=== PATIENT | female | born 1940 | race Caucasian/White ===

== ENCOUNTER → 2016-10-17 | Outpatient (CLI) | payer MEDICARE, BC ==
[2016-10-17 09:34] LABS: ALT 32 U/L (9-52); AST 20 U/L (14-36); Alkaline Phosphatase 67 U/L (38-126); Anion Gap 13 mmol/L; Blood Urea Nitrogen 27 mg/dL (7-17); Calcium 9.7 mg/dL (8.4-10.2); Carbon Dioxide 23 mmol/L (22-30); Chloride 103 mmol/L (98-107); Cholesterol 158 mg/dL (<200); Glucose 96 mg/dL (74-99); HDL Cholesterol 64 mg/dL (40-60); Non-African American GFR(MDRD) >60 (>60 ml/min/1.73 sqM); Potassium 4.3 mmol/L (3.5-5.1); Sodium 139 mmol/L (137-145); Total Bilirubin 0.5 mg/dL (0.2-1.3); Total Protein 7.2 g/dL (6.3-8.2); Triglycerides 118 mg/dL (<150)
[2016-10-17 09:37] LABS: CH 32.3; CHCM 34.6; HDW 2.59; HGB 12.8 gm/dL (11.4-16.0); MCH 31.6 pg (25.0-35.0); MCHC 33.7 g/dL (31.0-37.0); MCV 93.7 fL (80.0-100.0); Mean Platelet Volume 8.3; RBC 4.06 m/uL (3.80-5.40); RDW 12.6 % (11.5-15.5); WBC 6.8 k/uL (3.8-10.6)
[2016-10-17 13:52] LABS: Hemoglobin A1C 5.6 % (4.2-6.1)
== END | disposition home or self-care (01) ==
LOC: LABWHC1 08:29
PROVIDERS: ATTEND Internal Medicine
DX: E87.8 Other disorders of electrolyte and fluid balance, not elsewhere classified (principal); E78.4 Other hyperlipidemia; R53.83 Other fatigue
CPT/HCPCS: 36415; 80053; 80061; 83036; 84443; 85027

== ENCOUNTER 2016-12-01 21:00 | Emergency (ER) | payer MEDICARE, BC ==
[2016-12-01 21:15] VITALS: RESP 18
--- NOTE | 2016-12-01 21:44 | ED ---
General Adult HPI - General Chief complaint: Upper Respiratory Infection Stated complaint: Cough Time Seen by Provider: 12/01/16 21:32 Source: patient, RN notes reviewed Mode of arrival: ambulatory Limitations: no limitations - History of Present Illness Initial comments: This is a 76-year-old female who presents with a cough 2 weeks that is dry. Patient states she feels like she has to cough up phlegm but she can't. Patient states the cough is worse at night. Patient denies any swelling to bilateral lower extremities. Patient also admits to bilateral ear fullness and congestion. Patient states she's been on amoxicillin for this 2 days but has not noticed any improvement. Patient denies any fever/chills or difficulty breathing. Patient states her throat feels dry but denies that it is sore. Patient denies any abdominal pain, nausea/vomiting/diarrhea.Patient denies any recent chest pain, back pain, numbness, tingling, hematuria, headache, or visual changes, or any other complaints. - Related Data Home Medications Medication Instructions Recorded Confirmed Hydrochlorothiazide 25 mg PO DAILY 10/16/14 12/01/16 Potassium Chloride ER [K-Dur 10] 10 meq PO DAILY 10/16/14 12/01/16 metFORMIN HCL 500 mg PO W/SUPPER 10/16/14 12/01/16 Aspirin 81 mg PO HS 03/26/15 12/01/16 Isosorbide Mononitrate ER [Imdur] 30 mg PO DAILY 08/13/15 12/01/16 Levothyroxine Sodium [Synthroid] 50 mcg PO DAILY 08/13/15 12/01/16 Nitroglycerin Sl Tabs [Nitrostat] 0.4 mg SUBLINGUAL Q5M PRN 08/13/15 12/01/16 Previous Rx's Medication Instructions Recorded Lisinopril [Zestril] 5 mg PO DAILY tab 08/15/15 Azithromycin [Zithromax Z-pack] 250 mg PO DIRECTED #6 tab 12/01/16 Allergies Allergy/AdvReac Type Severity Reaction Status Date / Time Sulfa (Sulfonamide Allergy Itching Verified 12/01/16 21:15 Antibiotics) Review of Systems ROS Statement: Those systems with pertinent positive or pertinent negative responses have been documented in the HPI. ROS Other: All systems not noted in ROS Statement are negative. Past Medical History Past Medical History: Diabetes Mellitus, Hypertension History of Any Multi-Drug Resistant Organisms: None Reported Past Surgical History: Cholecystectomy, Hysterectomy, Orthopedic Surgery Additional Past Surgical History / Comment(s): hip/achilles tendon/colonoscopy/ shoulder Past Anesthesia/Blood Transfusion Reactions: No Reported Reaction Past Psychological History: No Psychological Hx Reported Smoking Status: Never smoker Past Alcohol Use History: None Reported Past Drug Use History: None Reported - Past Family History Mother Family Medical History: Diabetes Mellitus Additional Family Medical History / Comment(s): murmur stomach cancer Father Family Medical History: CVA/TIA General Exam - General Exam Comments Initial Comments: General: The patient is awake and alert, in no distress, and does not appear acutely ill. Eye: Pupils are equal, round and reactive to light, extra-ocular movements are intact. No nystagmus. There is normal conjunctiva bilaterally. No signs of icterus. Ears: TMs pink and pearly with intact cone of light bilaterally. Normal external ear canals Nose: Nasal turbinates pink and moist Mouth and throat: There are moist mucous membranes and no oral lesions. Neck: The neck is supple, there is no tenderness or JVD. Cardiovascular: There is a regular rate and rhythm. No murmur, rub or gallop is appreciated. Respiratory: Dry cough present on exam. Lungs are clear to auscultation, respirations are non-labored, breath sounds are equal. No wheezes, stridor, rales, or rhonchi. Musculoskeletal: Normal ROM, no tenderness. Strength 5/5. Sensation intact. Radial pulses equal bilaterally 2+. Neurological: A&O x 3. CN II-XII intact, There are no obvious motor or sensory deficits. Coordination appears grossly intact. Speech is normal. Skin: Skin is warm and dry and no rashes or lesions are noted. Psychiatric: Cooperative, appropriate mood & affect, normal judgment. Limitations: no limitations Course Vital Signs 12/01/16 12/01/16 21:12 23:16 Temperature 98.4 F 97.8 F Pulse Rate 81 79 Respiratory 18 18 Rate Blood Pressure 139/65 128/71 O2 Sat by Pulse 98 97 Oximetry Medical Decision Making - Medical Decision Making This is a 76 her old female presents with dry cough 2 weeks along with congestion and bilateral ear fullness. Patient has been on 2 days of amoxicillin. On physical exam patient is afebrile in the EC. Patient is neurologically intact. There is a dry cough present on exam and lungs are clear to auscultation bilaterally. Influenza was checked and came back negative. A chest x-ray was done and reviewed showing: No acute cardiopulmonary process. Report read by Dr. Lyle. I discussed the results with patient. Discussed that patient should stop amoxicillin and she will be given a prescription for azithromycin. Patient tolerated oral fluids in the EC and is having no trouble swallowing. I discussed return parameters.Discussed that patient should follow up with PCP in one to 2 days or return to the EC for any worsening symptoms or for any further concerns. Patient was receptive to this plan and patient will be discharged home. I discussed this case with attending physician Dr. Curtis who agrees the plan as stated above. - Lab Data Lab Results 12/01/16 Range/Units 21:45 Influenza Type A RNA Not Detected (Not Detectd) Influenza Type B (PCR) Not Detected (Not Detectd) Disposition Clinical Impression: Upper respiratory infection Disposition: HOME SELF-CARE Condition: Good Instructions: Upper Respiratory Infection (ED) Additional Instructions: Please stop amoxicillin and take azithromycin. Please finish entire course of antibiotics. Please continue to drink plenty of fluids.Discussed that patient should follow up with PCP in one to 2 days or return to the EC for any worsening symptoms or any further concerns. Patient was receptive to this plan patient was discharged home. Prescriptions: Azithromycin [Zithromax Z-pack] 250 mg PO DIRECTED #6 tab Referrals: Neymar Goff MD [Primary Care Provider] - 1-2 days Time of Disposition: 23:08
--- NOTE | 2016-12-01 22:07 | XR ---
EXAMINATION TYPE: XR chest 2V DATE OF EXAM: 12/01/2016 9:54 PM COMPARISON: Prior chest x-ray 13 August 2015 HISTORY: Cough and congestion TECHNIQUE: Frontal and lateral views of the chest are obtained. FINDINGS: There is no focal air space opacity, pleural effusion, or pneumothorax seen. The cardiac silhouette size is within normal limits. The osseous structures are intact. IMPRESSION: No acute cardiopulmonary process.
[2016-12-01 23:18] VITALS: BP 128/71; PULSE 79; TEMP 97.8
== END 2016-12-01 23:17 | disposition home or self-care (01) ==
LOC: EC 21:00
DX: J06.9 Acute upper respiratory infection, unspecified (principal); E11.9 Type 2 diabetes mellitus without complications; I10 Essential (primary) hypertension; Z79.84 Long term (current) use of oral hypoglycemic drugs; Z79.82 Long term (current) use of aspirin; Z79.899 Other long term (current) drug therapy; Z88.2 Allergy status to sulfonamides
CPT/HCPCS: 71020; 87502; 99283

== ENCOUNTER → 2017-04-16 | Outpatient (CLI) | payer MEDICARE, BC ==
[2017-04-16 09:55] LABS: Anion Gap 11 mmol/L; Blood Urea Nitrogen 20 mg/dL (7-17); Calcium 9.1 mg/dL (8.4-10.2); Carbon Dioxide 22 mmol/L (22-30); Chloride 107 mmol/L (98-107); Cholesterol 157 mg/dL (<200); Glucose 83 mg/dL (74-99); HDL Cholesterol 65 mg/dL (40-60); Non-African American GFR(MDRD) 57 (>60 ml/min/1.73 sqM); Potassium 4.1 mmol/L (3.5-5.1); Sodium 140 mmol/L (137-145); Triglycerides 121 mg/dL (<150)
[2017-04-16 11:58] LABS: Hemoglobin A1C 5.9 % (4.2-6.1)
[2017-04-16 16:59] LABS: Urine Creatinine 116.6 mg/dL
== END | disposition home or self-care (01) ==
LOC: LABWHC1 08:43
PROVIDERS: ATTEND Internal Medicine
DX: E11.9 Type 2 diabetes mellitus without complications (principal); E78.5 Hyperlipidemia, unspecified; I10 Essential (primary) hypertension
CPT/HCPCS: 36415; 80048; 80061; 82043; 82570; 83036

== ENCOUNTER → 2018-05-07 | Outpatient (CLI) | payer MEDICARE, BC ==
[2018-05-07 10:11] LABS: Calcium 9.3 mg/dL (8.4-10.2); Potassium 4.1 mmol/L (3.5-5.1)
[2018-05-07 18:21] LABS: Hemoglobin A1C 5.6 % (4.0-6.0)
== END | disposition home or self-care (01) ==
LOC: LABWHC1 08:25
PROVIDERS: ATTEND Internal Medicine
DX: E11.69 Type 2 diabetes mellitus with other specified complication (principal); E87.8 Other disorders of electrolyte and fluid balance, not elsewhere classified; E78.4 Other hyperlipidemia
CPT/HCPCS: 36415; 80048; 80061; 83036

== ENCOUNTER → 2018-08-08 | Outpatient (CLI) | payer MEDICARE, BC ==
--- NOTE | 2018-08-12 09:19 | MM ---
Reason for exam: screening (asymptomatic). Last mammogram was performed 1 year and 1 month ago. History: Patient is postmenopausal and has history of other cancer at age 75. Physical Findings: A clinical breast exam by your physician is recommended on an annual basis and results should be correlated with mammographic findings. MG 3D Screening Mammo W/Cad Bilateral CC and MLO view(s) were taken. Prior study comparison: July 19, 2017, bilateral MG 3d screening mammo w/cad. June 27, 2016, bilateral MG 3d screening mammo w/cad. There are scattered fibroglandular densities. Benign appearing diffuse bilateral calcifications. No suspicious abnormality. No significant changes when compared with prior studies. ASSESSMENT: Benign, BI-RAD 2 RECOMMENDATION: Routine screening mammogram of both breasts in 1 year.
== END | disposition home or self-care (01) ==
LOC: RADMAMWWP 14:11
PROVIDERS: ATTEND Internal Medicine
DX: Z12.31 Encounter for screening mammogram for malignant neoplasm of breast (principal)
CPT/HCPCS: 77063; 77067

== ENCOUNTER → 2019-08-25 | Outpatient (CLI) | payer MEDICARE, BC ==
--- NOTE | 2019-08-27 13:41 | MM ---
Reason for exam: screening (asymptomatic). Last mammogram was performed 1 year and 1 month ago. History: Patient is postmenopausal and has history of other cancer at age 75. Physical Findings: A clinical breast exam by your physician is recommended on an annual basis and results should be correlated with mammographic findings. MG 3D Screening Mammo W/Cad Bilateral CC and MLO view(s) were taken. Prior study comparison: August 08, 2018, bilateral MG 3d screening mammo w/cad. July 19, 2017, bilateral MG 3d screening mammo w/cad. The breast tissue is almost entirely fat. Stable benign calcifications. There is no discrete abnormality. No significant changes when compared with prior studies. ASSESSMENT: Benign, BI-RAD 2 RECOMMENDATION: Routine screening mammogram of both breasts in 1 year.
== END | disposition home or self-care (01) ==
LOC: RADMAMWWP 13:20
PROVIDERS: ATTEND Family Medicine
DX: Z12.31 Encounter for screening mammogram for malignant neoplasm of breast (principal)
CPT/HCPCS: 77063; 77067

== ENCOUNTER → 2019-09-28 | Outpatient (CLI) | payer MEDICARE, BC ==
--- NOTE | 2019-09-28 07:53 | US ---
EXAMINATION TYPE: US carotid duplex BILAT DATE OF EXAM: 09/28/2019 COMPARISON: NONE CLINICAL HISTORY: R10.12,Left upper quadrant pain R42 headaches,. Bruit EXAM MEASUREMENTS: RIGHT: Peak Systolic Velocity (PSV) cm/sec ----- Right CCA: 42.5 ----- Right ICA: 74.7 ----- Right ECA: 38.5 ICA/CCA ratio: 1.8 RIGHT: End Diastole cm/sec ----- Right CCA: 14.0 ----- Right ICA: 24.3 ----- Right ECA: 6.2 LEFT: Peak Systolic Velocity (PSV) cm/sec ----- Left CCA: 42.8 ----- Left ICA: 77.4 ----- Left ECA: 37.5 ICA/CCA ratio: 1.8 LEFT: End Diastole cm/sec ----- Left CCA: 13.1 ----- Left ICA: 26.8 ----- Left ECA: 6.4 VERTEBRALS (direction of flow): Right Vertebral: Antegrade Left Vertebral: Antegrade Rhythm: Normal No elevated velocities, no significant stenosis. IMPRESSION: Mild degree of grayscale atheromatous plaquing with no sonographically evident hemodynam ically significant stenosis within either visualized carotid arterial system. Criteria for Assigning % of Stenosis / Diameter reduction (Estimation based on the indirect measurements of the internal carotid artery velocities (ICA PSV). 1. Normal (no stenosis)=ICA PSV < 125 cm/s: ratio < 2.0: ICA EDV<40 cm/s. 2. Less than 50% stenosis=ICA PSV < 125 cm/s: ratio < 2.0: ICA EDV<40 cm/s. 3. 50 to 69% stenosis=ICA PSV of 125 to 230 cm/s: ration 2.0 ? 4.0: ICA EDV 40-100 cm/s. 4. Greater than 70% stenosis to near occlusion= ICA PSV > 230 cm/s: ratio > 4.0: ICA EDV > 100 cm/s. 5. Near occlusion= ICA PSV velocities may be low or undetectable: variable ratio and ICA EDV. 6. Total occlusion=unable to detect flow.
--- NOTE | 2019-09-28 08:32 | XR ---
EXAMINATION TYPE: XR Hip Complete RT DATE OF EXAM: 09/28/2019 CLINICAL HISTORY: Right hip pain. TECHNIQUE: AP and frogleg views of the right hip are obtained. COMPARISON: None. FINDINGS: There is no acute fracture/dislocation evident in the right hip. Metallic hardware from ri ght hip arthroplasty is identified. Position satisfactory. No suspicious periprosthetic lucency. The overlying soft tissue appears unremarkable. IMPRESSION: As above.
--- NOTE | 2019-09-28 09:34 | CT ---
EXAMINATION TYPE: CT brain wo con DATE OF EXAM: 09/28/2019 HISTORY: Headaches CT DLP: 961.00 mGycm. Automated Exposure Control for Dose Reduction was Utilized. TECHNIQUE: CT scan of the head is performed without contrast. COMPARISON: CT Brain Without March 26, 2015. FINDINGS: There is no acute intracranial hemorrhage or midline shift identified. There is diffuse v entricular and sulcal prominence consistent with diffuse cerebral atrophy. Findings redemonstrated m ost prominent over the bilateral frontal lobes. There is low-attenuation in the periventricular white matter consistent with chronic small vessel ischemic change. The globes are intact and the visualiz ed sinuses are clear. IMPRESSION: No acute intracranial hemorrhage or midline shift. There is mild to moderate diffuse ce rebral atrophy most prominent over bilateral frontal lobes and chronic small vessel ischemic change r edemonstrated. No significant change from prior CT.
--- NOTE | 2019-09-28 09:59 | CT ---
EXAMINATION TYPE: CT abdomen pelvis wo con DATE OF EXAM: 09/28/2019 HISTORY: Left upper quadrant pain CT DLP: 747.70 mGycm. Automated Exposure Control for Dose Reduction was Utilized. TECHNIQUE: CT scan of the abdomen and pelvis is performed with oral but without IV contrast. COMPARISON: CT abdomen and pelvis December 19, 2012 FINDINGS: Within the limitations of a non-contrast study, the following observations are made. LUNG BASES: No significant abnormality is appreciated. LIVER/GB: Gallbladder is not visualized and presumed surgically absent. Findings similar to prior andrade dy. PANCREAS: No significant abnormality is seen. SPLEEN: No significant abnormality is seen. ADRENALS: No significant abnormality is seen. KIDNEYS: Cortical thinning bilaterally. No renal calculi or hydronephrosis. BOWEL: Small hiatal hernia is present. Oral contrast reaches level of mid transverse colon. Moderate prominence of fecal material throughout the remainder of colon through the rectum. No suspicious smal l bowel dilatation. A few distal colonic diverticula in the sigmoid colon near image 74. No convincin g CT evidence for acute diverticulitis. GENITAL ORGANS: Uterus is surgically absent . LYMPH NODES: No greater than 1cm abdominal or pelvic lymph nodes are appreciated. OSSEOUS STRUCTURES: Metallic hardware from a hip arthroplasty redemonstrated causing streak artifact limiting evaluation of pelvic structures. Moderate disc space narrowing at L4-L5 level more prominent from 2013. Moderate multilevel anterior and lateral spurring throughout the thoracolumbar spine. Mod erate to severe narrowing and subchondral cystic change left hip progressed from 2013. OTHER: There is minimal mass effect ventral wall hernia containing fat and tiny mesenteric vessels ax ial image 54 extending inferiorly to the level of umbilicus slightly larger in size versus 2013 study . IMPRESSION: Moderate mid to distal colonic fecal stasis without overall bowel obstruction may be acco unting for patient's symptoms.
== END | disposition home or self-care (01) ==
LOC: RADCTMAIN 06:42
PROVIDERS: ATTEND Family Medicine
DX: G31.89 Other specified degenerative diseases of nervous system (principal); R90.89 Other abnormal findings on diagnostic imaging of central nervous system; I65.23 Occlusion and stenosis of bilateral carotid arteries; K59.8 Other specified functional intestinal disorders; M25.551 Pain in right hip; Z96.641 Presence of right artificial hip joint
CPT/HCPCS: 70450; 73502; 74176; 93880

== ENCOUNTER → 2020-03-05 | Outpatient (CLI) | payer MEDICARE, BC ==
--- NOTE | 2020-03-06 22:21 | XR ---
EXAMINATION TYPE: XR lumbosacral spine 5 views DATE OF EXAM: 03/05/2020 COMPARISON: 09/14/2010 HISTORY: 79-year-old female low back and bilateral hip pain FINDINGS: 5 lumbar type vertebral bodies. As compared to 2009, there is been progression in degenerative disc d isease with moderate multilevel degenerative disc disease now present characterized by vacuum phenome non, endplate spondylosis, variable disc height loss, endplate sclerosis, greatest at L4-L5 and L5-S1 . Hypertrophic facet arthropathy throughout weight trace grade 1 anterolisthesis at L5-S1 appears new. No pars interarticularis defect identified. IMPRESSION: Progressive multilevel spondylotic changes compared to 2009 now moderate degenerative disc disease th roughout, more moderate to advanced in the lower lumbar spine and hypertrophic facet arthropathy with new trace grade 1 anterolisthesis at L5-S1. No vertebral compression collapse.
--- NOTE | 2020-03-06 22:23 | XR ---
EXAMINATION TYPE: AP view pelvis 2 views each hip DATE OF EXAM: 03/05/2020 COMPARISON: Right hip radiographs 09/28/2019 HISTORY: 79 year-old female bilateral hip pain FINDINGS: SI joints appear symmetric and intact as does the pubic symphysis. Right and larger plasty redemonstrated. Both acetabular cup and femoral stem components of the prosth esis remain seated. Some mild heterotopic ossification along the superior aspect of the hip joint is unchanged from 09/28/2019. Severe superolateral narrowing of left hip cartilage and joint space with subchondral sclerosis and c ystic change. Marginal spurring is present. No acute fracture, subluxation, or dislocation seen. IMPRESSION: 1. Stable right hip total arthroplasty. Mild heterotopic ossification along the superior aspect is un changed. 2. Severe left hip OA with loss of the superolateral weightbearing joint space.
== END | disposition home or self-care (01) ==
LOC: RADXRMAIN 10:11
PROVIDERS: ATTEND Family Medicine
DX: M16.12 Unilateral primary osteoarthritis, left hip (principal); Z96.641 Presence of right artificial hip joint; M25.859 Other specified joint disorders, unspecified hip; M51.36 Other intervertebral disc degeneration, lumbar region; M47.817 Spondylosis without myelopathy or radiculopathy, lumbosacral region
CPT/HCPCS: 72110; 72170; 73521

== ENCOUNTER → 2020-05-24 | Outpatient (CLI) | payer MEDICARE, BC ==
--- NOTE | 2020-05-24 14:08 | XR ---
EXAMINATION TYPE: XR lumbosacral spine min 4V DATE OF EXAM: 05/24/2020 COMPARISON: 03/05/2020 HISTORY: Low back pain TECHNIQUE: Five-view lumbar spine FINDINGS: There 5 lumbar-type vertebral bodies. The pedicles are intact. There is loss of disc height L1-L4 5 and mildly at L5-S1. Spondylosis is present. Minimal grade 1 spondylolisthesis of L5 anterio r on S1 may be present. No spondylolytic defects are evident. IMPRESSION: 1. Degenerative disc changes discussed above. 2. Spondylosis.
== END | disposition home or self-care (01) ==
LOC: RADXRMAIN 12:54
PROVIDERS: ATTEND Physical Medicine & Rehabilitation
DX: M43.17 Spondylolisthesis, lumbosacral region (principal); M47.27 Other spondylosis with radiculopathy, lumbosacral region; M51.17 Intervertebral disc disorders with radiculopathy, lumbosacral region
CPT/HCPCS: 72110

== ENCOUNTER → 2020-09-30 | Outpatient (CLI) | payer MEDICARE, BC ==
--- NOTE | 2020-10-02 10:03 | US ---
EXAMINATION TYPE: US carotid duplex BILAT DATE OF EXAM: 09/30/2020 COMPARISON: US CLINICAL HISTORY: Dizziness R42. EXAM MEASUREMENTS: RIGHT: Peak Systolic Velocity (PSV) cm/sec ----- Right CCA: 68.8 ----- Right ICA: 103 ----- Right ECA: 102 ICA/CCA ratio: 1.5 RIGHT: End Diastole cm/sec ----- Right CCA: 12.4 ----- Right ICA: 31.2 ----- Right ECA: 15.6 LEFT: Peak Systolic Velocity (PSV) cm/sec ----- Left CCA: 68.8 ----- Left ICA: 101 ----- Left ECA: 76.1 ICA/CCA ratio: 1.3 LEFT: End Diastole cm/sec ----- Left CCA: 16.3 ----- Left ICA: 26.5 ----- Left ECA: 11.6 VERTEBRALS (direction of flow): Right Vertebral: Antegrade Left Vertebral: Antegrade Rhythm: Normal Grayscale, color Doppler, spectral Doppler imaging performed of the carotid arteries. Waveform analys is shows no significant stenosis. No elevated velocities. Mild bilateral plaque noted. IMPRESSION: No hemodynamic significant stenosis of the proximal internal carotid arteries bilaterall y by Doppler criteria, an indirect measurement of carotid stenosis Criteria for Assigning % of Stenosis / Diameter reduction (Estimation based on the indirect measurements of the internal carotid artery velocities (ICA PSV). 1. Normal (no stenosis)=ICA PSV < 125 cm/s: ratio < 2.0: ICA EDV<40 cm/s. 2. Less than 50% stenosis=ICA PSV < 125 cm/s: ratio < 2.0: ICA EDV<40 cm/s. 3. 50 to 69% stenosis=ICA PSV of 125 to 230 cm/s: ration 2.0 ? 4.0: ICA EDV 40-100 cm/s. 4. Greater than 70% stenosis to near occlusion= ICA PSV > 230 cm/s: ratio > 4.0: ICA EDV > 100 cm/s. 5. Near occlusion= ICA PSV velocities may be low or undetectable: variable ratio and ICA EDV. 6. Total occlusion=unable to detect flow.
== END | disposition home or self-care (01) ==
LOC: RADUSWWP 16:14
PROVIDERS: ATTEND Family Medicine
DX: R42 Dizziness and giddiness (principal)
CPT/HCPCS: 93880

== ENCOUNTER → 2020-10-10 | Outpatient (CLI) | payer MEDICARE, BC ==
--- NOTE | 2020-10-10 12:11 | US ---
EXAMINATION TYPE: US kidneys/renal and bladder DATE OF EXAM: 10/10/2020 COMPARISON: None CLINICAL HISTORY: 80-year-old female N18.9 CKD unspecified...... Abnormal labs TECHNIQUE: Multiple sonographic images of the kidneys and bladder are obtained. FINDINGS: EXAM MEASUREMENTS: Right Kidney: 8.6 x 3.9 x 4.1 cm Left Kidney: 9.6 x 3.3 x 4.9 cm Right Kidney: appears smaller in size compared to contralateral kidney. No hydronephrosis. Left Kidney: No hydronephrosis. Bladder: Underdistention limited for evaluation. Bilateral Jets not seen IMPRESSION: Smaller size of the kidneys, more so on the right. Findings suggest underlying chronic medical renal disease. No hydronephrosis.
--- NOTE | 2020-10-11 09:58 | MM ---
Reason for exam: screening (asymptomatic). Last mammogram was performed 1 year and 1 month ago. History: Patient is postmenopausal and has history of other cancer at age 75. Physical Findings: A clinical breast exam by your physician is recommended on an annual basis and results should be correlated with mammographic findings. MG 3D Screening Mammo W/Cad Bilateral CC and MLO view(s) were taken. Prior study comparison: August 25, 2019, bilateral MG 3d screening mammo w/cad. August 08, 2018, bilateral MG 3d screening mammo w/cad. There are scattered fibroglandular densities. Stable benign calcifications. There is no discrete abnormality. No significant changes when compared with prior studies. ASSESSMENT: Benign, BI-RAD 2 RECOMMENDATION: Routine screening mammogram of both breasts in 1 year.
== END | disposition home or self-care (01) ==
LOC: RADUSWWP 10:05
PROVIDERS: ATTEND Family Medicine
DX: Z12.31 Encounter for screening mammogram for malignant neoplasm of breast (principal); N27.1 Small kidney, bilateral; N18.9 Chronic kidney disease, unspecified
CPT/HCPCS: 76770; 77063; 77067

== ENCOUNTER → 2020-10-15 | Outpatient (CLI) | payer MEDICARE, BC ==
--- NOTE | 2020-10-15 17:27 | MR ---
MR brain without contrast HISTORY: Dizziness Multiplanar multisequence imaging through the brain Correlation to CT brain 09/28/2019 There is no restricted diffusion. Cortical atrophy is again noted. There is no hemorrhage or hydrocep halus. There are normal vascular flow voids. Cerebellopontine angles, corpus callosum, pituitary, cer vical medullary junction are within normal limits. There are diffuse scattered and confluent hyperint ensities within the pericallosal, periventricular, subcortical white matter on inversion recovery T2- weighted sequences as well as probable lacunar infarct change within the basal ganglia, focal encepha lomalacia vaguely seen on CT. Inflammatory changes are present within the ethmoid air cells. The orbi ts show symmetric appearance. IMPRESSION: Age-related changes of atrophy and chronic small vessel ischemia. Mild sinus disease.
== END | disposition home or self-care (01) ==
LOC: RADMRIMAIN 12:36
PROVIDERS: ATTEND Family Medicine
DX: I67.82 Cerebral ischemia (principal); G31.1 Senile degeneration of brain, not elsewhere classified
CPT/HCPCS: 70551

== ENCOUNTER → 2021-04-10 | Outpatient (CLI) | payer MEDICARE, BC ==
[2021-04-10 13:47] LABS: HGB 12.5 gm/dL (11.4-16.0); MCV 94.1 fL (80.0-100.0); Mean Platelet Volume 8.4; Platelet Count 225 k/uL (150-450); RBC 4.04 m/uL (3.80-5.40); RDW 12.7 % (11.5-15.5); WBC 7.1 k/uL (3.8-10.6)
[2021-04-10 13:51] LABS: Appearance,Urine Clear (Clear); Bilirubin,Urine Negative (Negative); Blood,Urine Negative (Negative); Color,Urine Yellow; Glucose,Urine (UA) Negative (Negative); Ketones,Urine Negative (Negative); Leukocyte Esterase,Urine Trace (Negative); Nitrite,Urine Negative (Negative); Protein,Urine Negative (Negative); RBC,Urine <1 /hpf (0-5); Specific Gravity,Urine 1.015 (1.001-1.035); Squamous Epithelial Cell,Urine <1 /hpf (0-4); Urobilinogen,Urine <2.0 mg/dL (<2.0); WBC,Urine 2 /hpf (0-5)
[2021-04-10 13:55] LABS: Partial Thromboplastin Time 23.9 sec (22.0-30.0); Prothrombin Time 10.8 sec (9.0-12.0)
[2021-04-10 14:08] LABS: Albumin 4.3 g/dL (3.5-5.0); Calcium 9.9 mg/dL (8.4-10.2); Potassium 4.3 mmol/L (3.5-5.1); Total Bilirubin 0.4 mg/dL (0.2-1.3)
== END | disposition home or self-care (01) ==
LOC: LABPAT 12:55
PROVIDERS: ATTEND Orthopaedic Surgery
DX: Z01.812 Encounter for preprocedural laboratory examination (principal); Z79.01 Long term (current) use of anticoagulants
CPT/HCPCS: 36415; 80053; 81001; 85027; 85610; 85730; 87070

== ENCOUNTER 2021-04-17 07:43 | Day surgery (SDC) | payer MEDICARE, BC ==
[2021-04-11 11:51] VITALS: BMI 34.9
[~2021-04-17 07:43] MED LIST: ACETAMINOPHEN TAB 500 MG TAB PO PRN; DEXAMETHASONE SOD PHOSPHATE 4 MG/ML 1 ML VIAL IV ONE; GABAPENTIN 300 MG CAP PO PRN; HYDROmorphone 0.5 MG/0.5 ML SYRINGE IVP PRN; MELOXICAM 7.5 MG TAB PO PRN; MIDAZOLAM 2 MG/2 ML VIAL IV PRN; ONDANSETRON 4 MG/2 ML VIAL IVP ONE; ROPIVACAINE/EPI/CLONIDINE/KET 50 ML SYRINGE MISCELLANE PRN; TRANEXAMIC ACID 1,000 MG in SODIUM CHLORIDE 0.9% 100 ML IVPB PRN
[2021-04-17] MEDS ORDERED: HYDROmorphone 0.2 MG/1 ML SYRINGE IVP PRN (08:34)
[2021-04-17] MEDS ORDERED: ONDANSETRON 4 MG/2 ML VIAL IVP PRN (08:34)
[2021-04-17] MEDS ORDERED: NALOXONE 0.4 MG/ML 1 ML VIAL IV PRN (08:34)
[2021-04-17] MEDS ORDERED: MAGNESIUM HYDROXIDE 2,400 MG/10 ML CUP PO PRN (08:34)
[2021-04-17] MEDS ORDERED: HYDROmorphone 0.5 MG/0.5 ML SYRINGE IVP PRN ×2 (08:34)
[2021-04-17] MEDS ORDERED: HYDROcodone/APAP 7.5-325MG 1 EACH TAB PO PRN (08:36)
[2021-04-17] MEDS: LACTATED RINGERS 1,000 ML IV SCH ×3 (08:40→23:40)
[2021-04-17 08:49] LABS: Glucose,Whole Blood 94 mg/dL (75-99)
[2021-04-17] MEDS ORDERED: HEPARIN SODIUM,PORCINE 10,000 UNIT/ML 1 ML VIAL ONE (08:54)
[2021-04-17] MEDS ORDERED: SODIUM CHLORIDE 0.9% IRRIG 1,000 ML BTL IRRIGATION ONE (08:54)
[2021-04-17] MEDS ORDERED: fentaNYL (PF) 50 MCG/ML 2 ML AMP ONE (08:54)
[2021-04-17] MEDS ORDERED: PROPOFOL 10 MG/ML 20 ML VIAL IV ONE (08:54)
[2021-04-17] MEDS ORDERED: TRANEXAMIC ACID 1,000 MG/10 ML VIAL ONE (08:54)
[2021-04-17] MEDS ORDERED: SODIUM CHLORIDE 0.9% 100 ML BAG ONE (08:54)
[2021-04-17] MEDS ORDERED: MIDAZOLAM 2 MG/2 ML VIAL ONE (08:54)
[2021-04-17] MEDS ORDERED: ceFAZolin 1,000 MG in SODIUM CHLORIDE 0.9% 1,000 ML IRRIGATION ONE (08:59)
--- NOTE | 2021-04-17 10:20 | P.OP ---
Date of Procedure: 04/17/21 Preoperative Diagnosis: Severe osteoarthritis left hip Postoperative Diagnosis: Severe osteoarthritis left hip Procedure(s) Performed: Left total hip arthroplasty the fifth anterior approach Implants: [employer] Nephew Polarstem standard size 2 [employer] Nephew R3, 3 hole hemispherical acetabular shell, 48 mm [employer] Nephew Reflection 6.5 mm cancellus screw, 20 mm 2 [employer]hew R3, XLPE 20 acetabular liner [employer] & Nephew Oxinium femoral head 32 m, +4 All components were press-fit. The articulation is Oxinium on polyethylene. Anesthesia: spinal Surgeon: Urbano Hernández Floor Covering Printer #1: Petty Singh Estimated Blood Loss (ml): 100 Pathology: other (Femoral head) Condition: stable Disposition: PACU Indications for Procedure: After failure of conservative treatment we discussed the surgical and nonsurgical treatment options at length. Patient wishes to proceed with a total hip arthroplasty with a direct anterior approach. Complications specific to this procedure were discussed at length, including but not limited to infection, leg length discrepancy, dislocation, nerve injury, and fracture. Covid-19 was also discussed at length with the patient, and they are aware of the current policies and procedures. The patient was given the option of delaying surgery, but they elect to proceed knowing these risks. Patient is aware of all these complications and informed consent was obtained Operative Findings: The operative findings are consistent with severe osteoarthritis of the left hip Description of Procedure: Patient was seen and evaluated in the preoperative area and the consent was reviewed. The operative site was marked with a skin marker. The patient was then brought to the operating room and given preoperative antibiotics intrav enously. 1 g of Tranexamic acid was also given intravenously. A spinal anesthetic was administered by the anesthesia department. The patient was then placed on the [place] table with the bony prominences well-padded. The hip area was then prepped with a ChloraPrep solution and draped in the usual sterile fashion. A universal timeout was then performed, which confirmed the patient's name, surgical site, ALLERGIES, and procedure being performed on the consent. Next the incision site was located at 1 cm distal to the anterior superior iliac spine along the flexion crease of the hip. The skin and subcutaneous tissues were sharply incised. Incision was carefully dissected down to the fascia overlying the tensor fascia srinivasan muscle. This fascia was then incised in line with the incision. Care was taken to stay laterally in order to avoid injuring the lateral femoral cutaneous nerve. Next, using blunt finger dissection, the tensor fascia srinivasan muscle was dissected off its investing fascia. The muscle was then carefully retracted laterally with a cobra retractor over the lateral neck of the femur. Next, the circumflex vessels were identified and cauterized using the AquaMantis device. The anterior hip capsule was then exposed. The capsule was then opened and an inverted T fashion. Cobra retractors were then placed intracapsularly. The retractors were maintained intracapsular throughout the procedure. The proximal femur was then visualized. A small amount of traction was placed on the leg. The femoral neck was then osteotomized appropriate level above the lesser troc hanter. A small wedge of bone was then removed from the remaining femoral head. Next, using a corkscrew the femoral head was removed from the acetabulum. On gross visual inspection, the femoral head had complete loss of articular cartilage and multiple periarticular osteophytes. The femoral head was then measured. Attention was then turned to the acetabulum. The acetabulum was exposed and any remaining labrum was excised. Sequential reaming of the acetabulum was performed using fluoroscopic guidance until there was a good bed of bleeding cancellus bone. When the appropriate size was re ached, a trial was then placed. The position and fit of the trial was checked with fluoroscopy. The trial was then removed. Then, using fluoroscopic guidance, the final implant was impacted at 20 of anteversion and 40 of abduction, and fully seated in the acetabulum. 2 screws were then placed in the acetabulum. Again fluoroscopy was used to check position of the screws. Next, the liner was then impacted, with a 20 elevated liner located in the anterior superior quadrant. Component locking was confirmed. Attention was then directed to the femur. With the aid of the [place] table, the f emur was externally rotated to approximately 130, extended, and adducted under the opposite leg. A side hook was then placed under the proximal femur, and the side hook elevator was used to elevate the proximal femur while releasing the capsule. Retractors were then placed. A capsular release was performed, as well as a release of the conjoined tendon, which afforded excellent visualization of the proximal femur. Next, a box osteotome was used to lateralize the proximal femur. A deputy sheriff k9 handler was then used to locate the femoral canal. Sequential broaching was then performed with appropriate size which afforded excellent fixation in the proximal femur. A trial was then placed with appropriate head and neck, and the hip was gently reduced with the aid of the Corn[place] table. Fluoroscopy was then used to check position of the components, as well as to ensure equal leg lengths. The hip was then gently dislocated and the trials were then removed. Final implants were then impacted and the hip was again reduced. Final fluoroscopic x-rays confirmed that the components were in anatomic position, as well as equal leg lengths. The hip was also taken through range of motion, and found to be stable. The hip was then copiously irrigated with antibiotic solution with pulsatile lavage. The hip was then irrigated with Irrisept solution. The soft tissues were then injected with a ropivacaine solution, which consisted of 246.25 mg of ropivacaine, 0.5 mg of epinephrine, 30 mg of Toradol, 80 g of clonidine, and 48.45 mL of sterile water, for a total of 100 mL of fluid injected. A second dose of 1 g of Tranexamic acid was also given intravenously. Any blood collected by Cell Saver was then returned to the patient at this time. The fascia was then closed with 2-0 strata fix suture. The subcutaneous tissue was closed with 3-0 Vicryl. The subcuticular tissue was closed with 3-0 strata fix suture. The skin was then closed with Exofin skin glue. After the glue and dried, and Optifoam silver impregnated dressing was applied. The patient was then transferred to the recovery room in stable condition. The pediatric assistant CHUCK Cintron was required due to the complexity of surgery, and the need for skilled surgical supervisor for positioning, draping, exposure, retraction, and closure of the wound.
[2021-04-17] MEDS ORDERED: IV FLUID CONTINUATION 500 ML IV ONE (10:37)
--- NOTE | 2021-04-17 10:39 | XR ---
Fluoroscopy INDICATION: Pain FINDINGS: Fluoroscopy time: 26 seconds. Images obtained: 2. IMPRESSIONS: 1. Documentation of fluoroscopy.
--- NOTE | 2021-04-17 10:40 | FL ---
Fluoroscopy INDICATION: Pain FINDINGS: Fluoroscopy time: 6 seconds. Images obtained: 2. IMPRESSIONS: 1. Documentation of fluoroscopy.
--- NOTE | 2021-04-17 11:26 | XR ---
EXAMINATION TYPE: XR Hip Limited LT DATE OF EXAM: 04/17/2021 COMPARISON: None HISTORY: Postop hip TECHNIQUE: AP left hip FINDINGS: There is placement of a left femoral prosthesis and acetabular component. Small calcificati on is at the acetabular spur could be fracture fragment. No additional areas suspicious for fractures evident. Soft tissue postsurgical changes are evident. IMPRESSION: 1. There may be an acetabular spur fracture or free fragment just lateral to the acetabular componen t in this postoperative left hip replacement. 2. No additional areas suspicious for fracture evident.
[2021-04-17 15:15] LABS: Glucose,Whole Blood 138 mg/dL (75-99)
[2021-04-17] MEDS: SODIUM CHLORIDE 0.9% 1,000 ML IV SCH ×2 (17:41→23:40)
[2021-04-17] MEDS: INSULIN ASPART (NovoLOG) 100 UNIT/ML VIAL SQ SCH ×2 (18:13→21:35)
[2021-04-17] MEDS: MELOXICAM 7.5 MG TAB PO SCH (18:13)
[2021-04-17 18:14] LABS: Glucose,Whole Blood 255 mg/dL (75-99)
[2021-04-17] MEDS: HYDROcodone/APAP 7.5-325MG 1 EACH TAB PO PRN (18:31)
--- NOTE | 2021-04-17 18:39 | P.CONS ---
History of Present Illness - Reason for Consult Consult date: 04/17/21 Requesting physician: Urbano Hernández - Chief Complaint Medical management - History of Present Illness 80-year-old woman with medical history of CKD stage III, hypertension, hyperlipidemia, diabetes type 2, hypothyroidism presented for elective left hip arthroplasty. Medicine consulted for medical management. Patient is doing well postoperatively. She has no complaints at this time. Her medical conditions are stable. Review systems is negative for fevers, chills, nausea, vomiting, abdominal pain, chest pain, palpitations, syncope, cough, diarrhea, constipation, numbness/weakness of extremities. Review of Systems All Systems reviewed and pertinent positives and negatives noted in HPI, all other symptoms are negative Past Medical History Past Medical History: Diabetes Mellitus, Hyperlipidemia, Hypertension, Osteoarthritis (OA), Renal Disease, Skin Disorder, Thyroid Disorder Additional Past Medical History / Comment(s): psoriasis,colon polyp, kidney disease., uses nystatin powder to folds of abd & thighs. History of Any Multi-Drug Resistant Organisms: None Reported Past Surgical History: Cholecystectomy, Hysterectomy, Orthopedic Surgery Additional Past Surgical History / Comment(s): Right Total Hip (2005) ,achilles tendon/colonoscopy/Left shoulder surgery., thumb surgery Past Anesthesia/Blood Transfusion Reactions: Postoperative Nausea & Vomiting (PONV) Past Psychological History: Anxiety, Depression Additional Psychological History / Comment(s): states sometimes anxiety and depression due to health Smoking Status: Never smoker Past Alcohol Use History: None Reported Past Drug Use History: None Reported - Past Family History Mother Family Medical History: Diabetes Mellitus Additional Family Medical History / Comment(s): murmur ,stomach cancer Father Family Medical History: CVA/TIA Medications and Allergies Home Medications Medication Instructions Recorded Confirmed Type Hydrochlorothiazide 25 mg PO DAILY 10/16/14 04/11/21 History Potassium Chloride ER [K-Dur 10] 10 meq PO DAILY 10/16/14 04/11/21 History metFORMIN HCL 500 mg PO W/SUPPER 10/16/14 04/11/21 History Aspirin 162 mg PO HS 03/26/15 04/11/21 History Levothyroxine Sodium [Synthroid] 50 mcg PO DAILY 08/13/15 04/11/21 History lisinopriL [Zestril] 5 mg PO DAILY tab 08/15/15 04/11/21 Rx Acetaminophen [Tylenol] 1,000 mg PO DIRECTED PRN 04/11/21 04/11/21 History Atorvastatin [Lipitor] 10 mg PO HS 04/11/21 04/11/21 History Melatonin 5 mg PO HS 04/11/21 04/11/21 History Multivitamin [Multivitamins Adult 2 each PO DAILY 04/11/21 04/11/21 History Gummies] Nystatin 100,000 Unit/gm Powd 1 applic TOPICAL BID PRN 04/11/21 04/11/21 History [Mycostatin Powder] traMADol HCL [Ultram] 50 mg PO HS PRN 04/11/21 04/11/21 History Aspirin 325 mg PO BID #60 tab 04/17/21 Rx Celecoxib [CeleBREX] 200 mg PO DAILY 5 Days #5 capsule 04/17/21 Rx HYDROcodone/APAP 7.5-325MG [[place] 1 - 2 tab PO Q6H PRN #32 tab 04/17/21 Rx 7.5-325] Ondansetron Odt [Zofran Odt] 1 tab PO Q8HR PRN #10 tab 04/17/21 Rx Sennosides [Senokot] 2 tab PO DAILY PRN #60 tablet 04/17/21 Rx Allergies Allergy/AdvReac Type Severity Reaction Status Date / Time Sulfa (Sulfonamide Allergy Itching Verified 04/11/21 10:52 Antibiotics) Physical Exam Osteopathic Statement: *. No significant issues noted on an osteopathic structural exam other than those noted in the History and Physical/Consult. Vitals: Vital Signs Temp Pulse Resp BP BP Pulse Ox 04/17/21 15:00 58 L 16 111/64 100 04/17/21 14:30 56 L 16 120/56 99 04/17/21 14:00 57 L 16 124/60 100 04/17/21 13:30 54 L 16 96/51 99 04/17/21 13:00 56 L 16 100/50 99 04/17/21 12:30 55 L 16 107/53 99 04/17/21 12:00 53 L 16 110/50 99 04/17/21 11:45 54 L 16 124/60 100 04/17/21 11:30 59 L 16 131/67 97 04/17/21 11:15 56 L 16 128/65 96 04/17/21 11:00 56 L 16 114/55 97 04/17/21 10:45 62 16 102/55 98 04/17/21 10:37 96.8 F L 71 14 98/53 94 L 04/17/21 08:34 97.3 F L 69 16 180/74 99 Intake and Output 04/17/21 04/17/21 04/17/21 06:59 14:59 22:59 Intake Total 851 Output Total 100 Balance 751 Intake: IV 851 Output: Estimated Blood Loss 100 Other: Weight 86.3 kg Gen: awake, alert HEENT: normocephalic, atraumatic, good hearing acuity, moist mucous membranes Resp: good air exchange, breathing comfortably with no accessory muscle use, clear to auscultation bilaterally CVS: good distal perfusion x 4, regular rate and rhythm without murmurs GI: soft, NTTP, ND, appropriate bowel sounds : no SPT, no CVAT, dillard catheter not present MSK: Trace pitting edema, no clubbing Neuro: non-focal, moving all extremities Psych: cooperative, euthymic mood Results Labs: Abnormal Lab Results - Last 24 Hours (Table) 04/17/21 04/17/21 Range/Units 15:13 18:12 POC Glucose (mg/dL) 138 H 255 H (75-99) mg/dL Assessment and Plan Assessment: Hypertension Hyperlipidemia Diabetes type 2 CKD stage III Hypothyroidism Obesity, class I Left hip arthroplasty Plan: Medications were reviewed and reconciled. Patient's medical history was reviewed. Patient's medical conditions are stable at this time. We will hold metformin and substitute with low-dose on a scale insulin. Hold home potassium. Daily CBC, BMP, magnesium. We will continue to follow with you and adjust medications as necessary. We will defer DVT prophylaxis and discharge planning to the primary team. Please reach out to [facility] if any further comments/questions/concerns.
[2021-04-17] MEDS ORDERED: MELATONIN 5 MG TABLET PO SCH (21:00)
[2021-04-17] MEDS ORDERED: SENNOSIDES-DOCUSATE SODIUM 1 EACH TAB PO SCH (21:00)
[2021-04-17] MEDS ORDERED: ATORVASTATIN 10 MG TAB PO SCH (21:00)
[2021-04-17 21:16] LABS: Glucose,Whole Blood 127 mg/dL (75-99)
[2021-04-17] MEDS: ASPIRIN 325 MG TAB PO SCH (21:38)
[2021-04-18] MEDS: HYDROcodone/APAP 7.5-325MG 1 EACH TAB PO PRN (03:04)
[2021-04-18 05:53] LABS: Basophils % (A) 0 %; Eosinophils % (A) 0 %; HCT 33.3 % (34.0-46.0); HGB 11.3 gm/dL (11.4-16.0); Lymphocytes # (A) 1.3 k/uL (1.0-4.8); Lymphocytes % (A) 12 %; MCH 32.3 pg (25.0-35.0); MCV 94.8 fL (80.0-100.0); Mean Platelet Volume 8.8; Monocytes # (A) 0.8 k/uL (0-1.0); Monocytes % (A) 7 %; Neutrophils # (A) 8.6 k/uL (1.3-7.7); Neutrophils % (A) 79 %; Platelet Count 187 k/uL (150-450); RBC 3.51 m/uL (3.80-5.40); RDW 12.9 % (11.5-15.5); WBC 10.9 k/uL (3.8-10.6)
[2021-04-18 06:12] LABS: African American GFR (CKD) 73 (>60 ml/min/1.73 sqM); Anion Gap 8 mmol/L; Blood Urea Nitrogen 34 mg/dL (7-17); Calcium 8.8 mg/dL (8.4-10.2); Carbon Dioxide 20 mmol/L (22-30); Chloride 107 mmol/L (98-107); Glucose 126 mg/dL (74-99); Non-African American GFR(CKD) 63 (>60 ml/min/1.73 sqM); Potassium 4.1 mmol/L (3.5-5.1); Sodium 135 mmol/L (137-145)
[2021-04-18] MEDS ORDERED: LEVOTHYROXINE 50 MCG TAB PO SCH (06:30)
[2021-04-18 07:07] LABS: Glucose,Whole Blood 113 mg/dL (75-99)
[2021-04-18] MEDS: INSULIN ASPART (NovoLOG) 100 UNIT/ML VIAL SQ SCH ×2 (08:12→13:16)
[2021-04-18] MEDS: ASPIRIN 325 MG TAB PO SCH (08:29)
[2021-04-18] MEDS: MELOXICAM 7.5 MG TAB PO SCH (08:30)
[2021-04-18] MEDS ORDERED: MULTIVITAMINS, THERA 1 EACH TAB PO SCH (09:00)
[2021-04-18] MEDS ORDERED: lisinopriL 5 MG TAB PO SCH (09:00)
[2021-04-18] MEDS ORDERED: hydroCHLOROthiazide 25 MG TAB PO SCH (09:00)
--- NOTE | 2021-04-18 11:31 | P.DS ---
Providers Expected date of discharge: 04/18/21 Attending physician: Urbano Hernández Consults: 04/17/21 08:34 Consult Physician Routine Consulting Provider: Chari Lemos Consult Reason/Comments: medical management Do you want consulting provider notified?: Yes Primary care physician: Zohreh Spain - Discharge Diagnosis(es) (1) Primary osteoarthritis of left hip Current Visit: Yes Status: Acute (2) S/P total hip arthroplasty Current Visit: Yes Status: Acute Hospital Course: This is a 80-year-old female with known history of degenerative arthritis of the left hip. The patient presented for evaluation as an outpatient. After discussion and consideration patient elects to proceed with total hip arthroplasty. The patient is seen preoperatively by Dr. Hernández and medically cleared for surgery by their primary care physician. Patient is [facility] on 04[facility]17/2021 for total hip arthroplasty. The procedure is performed without complication or sequelae. The patient is doing well postoperatively. Labs and vital signs are stable on day of discharge. On day of discharge patient's hip incision is healing well. There is minimal erythema. There is no drainage noted at this time. There is minimal soft tissue swelling to the hip and thigh. Patient has full foot and ankle motion without difficulty or pain. Calf is soft and nontender to palpation. Neurovascular status to the left lower extremity is intact. Patient is discharged home in good condition. Opioid start talking form is reviewed and signed. Please see med rec for accurate list of home medications. Plan - Discharge Summary Discharge Rx Participant: Yes New Discharge Prescriptions: New Aspirin 325 mg PO BID #60 tab HYDROcodone/APAP 7.5-325MG [[place] 7.5-325] 1 - 2 tab PO Q6H PRN #32 tab PRN Reason: Pain Sennosides [Senokot] 2 tab PO DAILY PRN #60 tablet PRN Reason: Constipation Ondansetron Odt [Zofran Odt] 1 tab PO Q8HR PRN #10 tab PRN Reason: Nausea Celecoxib [CeleBREX] 200 mg PO DAILY 5 Days #5 capsule No Action metFORMIN HCL 500 mg PO W/SUPPER Potassium Chloride ER [K-Dur 10] 10 meq PO DAILY Hydrochlorothiazide 25 mg PO DAILY Aspirin 162 mg PO HS Levothyroxine Sodium [Synthroid] 50 mcg PO DAILY lisinopriL [Zestril] 5 mg PO DAILY tab Melatonin 5 mg PO HS Nystatin 100,000 Unit/gm Powd [Mycostatin Powder] 1 applic TOPICAL BID PRN PRN Reason: IRRITATION IN FOLDS OF SKIN Atorvastatin [Lipitor] 10 mg PO HS Acetaminophen [Tylenol] 1,000 mg PO DIRECTED PRN PRN Reason: Pain traMADol HCL [Ultram] 50 mg PO HS PRN PRN Reason: Pain Multivitamin [Multivitamins Adult Gummies] 2 each PO DAILY Discharge Medication List Hydrochlorothiazide 25 mg PO DAILY 10/16/14 [History] Potassium Chloride ER [K-Dur 10] 10 meq PO DAILY 10/16/14 [History] metFORMIN HCL 500 mg PO W/SUPPER 10/16/14 [History] Aspirin 162 mg PO HS 03/26/15 [History] Levothyroxine Sodium [Synthroid] 50 mcg PO DAILY 08/13/15 [History] lisinopriL [Zestril] 5 mg PO DAILY tab 08/15/15 [Rx] Acetaminophen [Tylenol] 1,000 mg PO DIRECTED PRN 04/11/21 [History] Atorvastatin [Lipitor] 10 mg PO HS 04/11/21 [History] Melatonin 5 mg PO HS 04/11/21 [History] Multivitamin [Multivitamins Adult Gummies] 2 each PO DAILY 04/11/21 [History] Nystatin 100,000 Unit/gm Powd [Mycostatin Powder] 1 applic TOPICAL BID PRN 04/11/21 [History] traMADol HCL [Ultram] 50 mg PO HS PRN 04/11/21 [History] Aspirin 325 mg PO BID #60 tab 04/17/21 [Rx] Celecoxib [CeleBREX] 200 mg PO DAILY 5 Days #5 capsule 04/17/21 [Rx] HYDROcodone/APAP 7.5-325MG [[place] 7.5-325] 1 - 2 tab PO Q6H PRN #32 tab 04/17/21 [Rx] Ondansetron Odt [Zofran Odt] 1 tab PO Q8HR PRN #10 tab 04/17/21 [Rx] Sennosides [Senokot] 2 tab PO DAILY PRN #60 tablet 04/17/21 [Rx] Follow up Appointment(s)/Referral(s): Urbano Hernández DO [Doctor of Osteopathic Medicine] - 2 Weeks [facility] Visiting Nurse, [NON-STAFF] - 1 Week Activity/Diet/Wound Care/Special Instructions: Weightbearing as tolerated with walker. Leave dressing intact. Dressing may be removed by home care nurse or by patient in 7 days. Then change dressing twice daily until follow up. May shower with initial dressing intact and after removal. If dressing become saturated, please remove. Please take aspirin 325mg twice daily for 30 days to prevent blood clots. Recommend use of compression stockings daily until follow up to help prevent swelling and blood clots. May remove at night before sleeping. Please follow-up with [facility] in 2 weeks and call with any questions or concerns, . Discharge Disposition: HOME WITH HOME HEALTH SERVICES
[2021-04-18 11:39] LABS: Glucose,Whole Blood 172 mg/dL (75-99)
[2021-04-18 12:06] VITALS: BP 93/47; PULSE 66; RESP 17; TEMP 98.1
--- NOTE | 2021-04-18 14:12 | P.PN ---
Subjective Progress Note Date: 04/18/21 No new complaints today. Medically stable for discharge. Objective - Vital Signs Vital signs: Vital Signs Temp 98.1 F 04/18/21 12:05 Pulse 66 04/18/21 12:05 Resp 17 04/18/21 12:05 BP 93/47 04/18/21 12:05 Pulse Ox 96 04/18/21 12:05 Intake & Output 04/17/21 04/18/21 04/18/21 18:59 06:59 18:59 Intake Total 1501 Output Total 100 200 Balance 1401 -200 Weight 86.3 kg Intake: IV 851 Intake, IV Titration 50 Amount ceFAZolin 2 gm In Sodium 50 Chloride 0.9% 50 ml @ 100 mls/hr IVPB Q8H AKIKO Rx#: [id number] Oral 600 Output: Urine 200 Estimated Blood Loss 100 Other: # Voids 1 2 # Bowel Movements 1 - Exam Gen: awake, alert HEENT: normocephalic, atraumatic, good hearing acuity, moist mucous membranes Resp: good air exchange, breathing comfortably with no accessory muscle use, clear to auscultation bilaterally CVS: good distal perfusion x 4, regular rate and rhythm without murmurs GI: soft, NTTP, ND, appropriate bowel sounds : no SPT, no CVAT, dillard catheter not present MSK: Trace pitting edema, no clubbing Neuro: non-focal, moving all extremities Psych: cooperative, euthymic mood - Labs CBC & Chem 7: 04/18/21 05:14 04/18/21 05:14 Labs: Abnormal Lab Results - Last 24 Hours (Table) 04/17/21 04/17/21 04/17/21 Range/Units 15:13 18:12 21:14 WBC (3.8-10.6) k/uL RBC (3.80-5.40) m/uL Hgb (11.4-16.0) gm/dL Hct (34.0-46.0) % Neutrophils # (1.3-7.7) k/uL Sodium (137-145) mmol/L Carbon Dioxide (22-30) mmol/L BUN (7-17) mg/dL Glucose (74-99) mg/dL POC Glucose (mg/dL) 138 H 255 H 127 H (75-99) mg/dL 04/18/21 04/18/21 04/18/21 Range/Units 05:14 05:14 07:06 WBC 10.9 H (3.8-10.6) k/uL RBC 3.51 L (3.80-5.40) m/uL Hgb 11.3 L (11.4-16.0) gm/dL Hct 33.3 L (34.0-46.0) % Neutrophils # 8.6 H (1.3-7.7) k/uL Sodium 135 L (137-145) mmol/L Carbon Dioxide 20 L (22-30) mmol/L BUN 34 H (7-17) mg/dL Glucose 126 H (74-99) mg/dL POC Glucose (mg/dL) 113 H (75-99) mg/dL 04/18/21 Range/Units 11:38 WBC (3.8-10.6) k/uL RBC (3.80-5.40) m/uL Hgb (11.4-16.0) gm/dL Hct (34.0-46.0) % Neutrophils # (1.3-7.7) k/uL Sodium (137-145) mmol/L Carbon Dioxide (22-30) mmol/L BUN (7-17) mg/dL Glucose (74-99) mg/dL POC Glucose (mg/dL) 172 H (75-99) mg/dL Assessment and Plan Assessment: Hypertension Hyperlipidemia Diabetes type 2 CKD stage III Hypothyroidism Obesity, class I Left hip arthroplasty Plan: Medications were reviewed and reconciled. Patient's medical history was reviewed. Patient's medical conditions are stable at this time. We will hold metformin and substitute with low-dose on a scale insulin. Hold home potassium. Daily CBC, BMP, magnesium. We will continue to follow with you and adjust medications as necessary. We will defer DVT prophylaxis and discharge planning to the primary team. Please reach out to [facility] if any further comments/questions/concerns.
== END 2021-04-18 15:00 | disposition home health service (06) ==
LOC: OR 07:43 → 5NMEDONC 10:39 → OR 04-18 15:00
PROVIDERS: ATTEND Orthopaedic Surgery
DX: M16.12 Unilateral primary osteoarthritis, left hip (principal); I10 Essential (primary) hypertension; E03.9 Hypothyroidism, unspecified; H91.90 Unspecified hearing loss, unspecified ear; Z97.3 Presence of spectacles and contact lenses; H04.129 Dry eye syndrome of unspecified lacrimal gland; Z85.828 Personal history of other malignant neoplasm of skin; Z90.710 Acquired absence of both cervix and uterus; Z98.890 Other specified postprocedural states; I12.9 Hypertensive chronic kidney disease with stage 1 through stage 4 chronic kidney disease, or unspecified chronic kidney disease; Z90.49 Acquired absence of other specified parts of digestive tract; E13.22 Other specified diabetes mellitus with diabetic chronic kidney disease; N18.9 Chronic kidney disease, unspecified; Z83.3 Family history of diabetes mellitus; Z86.010 Personal history of colon polyps; Z79.82 Long term (current) use of aspirin; Z79.890 Hormone replacement therapy; Z79.891 Long term (current) use of opiate analgesic; Z79.899 Other long term (current) drug therapy; Z88.2 Allergy status to sulfonamides; Z88.1 Allergy status to other antibiotic agents
CPT/HCPCS: 97162; 86891; 80048; 85025; 88300; 73501; 27130; C1776; J1100; J0690 ×3; J2405; J1170; 86850; 86900; 86901

== ENCOUNTER → 2021-07-10 | Outpatient (CLI) | payer MEDICARE, BC ==
--- NOTE | 2021-07-10 11:54 | XR ---
EXAMINATION TYPE: XR chest 2V DATE OF EXAM: 07/10/2021 COMPARISON: 12/01/16 HISTORY: Shortness of breath TECHNIQUE: Frontal and lateral views of the chest are obtained. FINDINGS: Scattered senescent parenchymal changes noted. Hyperinflation compatible with COPD. No evidence for infiltrate. No evidence for atelectasis. Heart size is stable. Mediastinal structures are stable and grossly unremarkable. No evidence for hilar prominence. Degenerative changes dorsal spine. IMPRESSION: 1. No evidence for acute pulmonary disease.
[2021-07-10 13:18] LABS: Basophils % (A) 0 %; Eosinophils # (A) 0.5 k/uL (0-0.7); Eosinophils % (A) 6 %; HCT 37.8 % (34.0-46.0); HGB 12.4 gm/dL (11.4-16.0); Lymphocytes # (A) 1.1 k/uL (1.0-4.8); Lymphocytes % (A) 12 %; MCH 30.3 pg (25.0-35.0); MCHC 32.8 g/dL (31.0-37.0); MCV 92.3 fL (80.0-100.0); Mean Platelet Volume 7.9; Monocytes # (A) 0.5 k/uL (0-1.0); Monocytes % (A) 5 %; Neutrophils % (A) 75 %; Platelet Count 284 k/uL (150-450); RBC 4.09 m/uL (3.80-5.40); RDW 12.9 % (11.5-15.5); WBC 9.3 k/uL (3.8-10.6)
[2021-07-10 13:42] LABS: ALT 31 U/L (4-34); AST 28 U/L (14-36); African American GFR (CKD) >90 (>60 ml/min/1.73 sqM); Albumin 3.9 g/dL (3.5-5.0); Alkaline Phosphatase 84 U/L (38-126); Anion Gap 12 mmol/L; Blood Urea Nitrogen 20 mg/dL (7-17); Calcium 9.8 mg/dL (8.4-10.2); Carbon Dioxide 20 mmol/L (22-30); Chloride 108 mmol/L (98-107); Glucose 146 mg/dL (74-99); Non-African American GFR(CKD) 80 (>60 ml/min/1.73 sqM); Potassium 4.1 mmol/L (3.5-5.1); Sodium 140 mmol/L (137-145); Total Bilirubin 0.3 mg/dL (0.2-1.3); Total Protein 6.8 g/dL (6.3-8.2)
== END | disposition home or self-care (01) ==
LOC: RADXRMAIN 11:34
PROVIDERS: ATTEND Family Medicine
DX: R06.02 Shortness of breath (principal); R05 Cough
CPT/HCPCS: 71046; 80053; 85025; 87635

== ENCOUNTER → 2021-11-30 | Outpatient (CLI) | payer MEDICARE ==
--- NOTE | 2021-12-05 12:12 | MM ---
Reason for exam: screening (asymptomatic). Last mammogram was performed 1 year and 2 months ago. History: Patient is postmenopausal and has history of other cancer at age 75. Physical Findings: A clinical breast exam by your physician is recommended on an annual basis and results should be correlated with mammographic findings. MG 3D Screening Mammo W/Cad Bilateral CC and MLO view(s) were taken. Prior study comparison: October 10, 2020, bilateral MG 3d screening mammo w/cad. August 25, 2019, bilateral MG 3d screening mammo w/cad. There are scattered fibroglandular densities. Numerous benign bilateral secretory oil cyst and vascular calcifications. No significant changes when compared with prior studies. ASSESSMENT: Benign, BI-RAD 2 RECOMMENDATION: Routine screening mammogram of both breasts in 1 year.
== END | disposition home or self-care (01) ==
LOC: RADMAMWWP 14:04
PROVIDERS: ATTEND Internal Medicine
DX: Z12.31 Encounter for screening mammogram for malignant neoplasm of breast (principal); Z78.0 Asymptomatic menopausal state
CPT/HCPCS: 77063; 77067

== ENCOUNTER → 2022-10-05 | Outpatient (CLI) | payer MEDICARE ==
--- NOTE | 2022-10-05 13:52 | US ---
EXAMINATION TYPE: US kidneys/renal and bladder DATE OF EXAM: 10/05/2022 COMPARISON: Renal ultrasound 10/10/2020. CLINICAL HISTORY: R10.9 TORRES FLANK PAIN. Recent UTI, bilat back pain EXAM MEASUREMENTS: Right Kidney: 9.3 x 3.9 x 4.2 cm Left Kidney: 10.3 x 4.0 x 4.5 cm Right Kidney: No hydronephrosis or masses seen Left Kidney: No hydronephrosis or masses seen Bladder: wnl There is no evidence for hydronephrosis at this point in time. No nephrolithiasis is seen. There is cortical thinning of both kidneys with preservation of corticomedullary differentiation. No masses a re identified. The urinary bladder is anechoic. IMPRESSION: 1. No hydronephrosis or nephrolithiasis. 2. Findings suggestive of underlying chronic medical renal disease.
== END | disposition home or self-care (01) ==
LOC: RADUSWWP 13:20
PROVIDERS: ATTEND Internal Medicine
DX: R10.9 Unspecified abdominal pain (principal); Z87.440 Personal history of urinary (tract) infections
CPT/HCPCS: 76770

== ENCOUNTER → 2022-12-12 | Outpatient (CLI) | payer MEDICARE ==
--- NOTE | 2022-12-13 11:08 | MM ---
Reason for Exam: Screening (asymptomatic). Last screening mammogram was performed 12 month(s) ago. Patient History: Menarche at age 12. First Full-Term at age 28. Hysterectomy at age 35. Postmenopausal. Other cancer, age 75. Risk Values: Fina 5 year model risk: 1.7%. Prior Study Comparison: 08/25/2019 Bilateral Screening Mammogram, [facility]. 10/10/2020 Bilateral Screening Mammogram, [facility]. 11/30/2021 Bilateral Screening Mammogram, [facility]. Tissue Density: There are scattered fibroglandular densities. Findings: Analyzed By CAD. Pattern appears symmetrical and stable. Multiple benign-appearing linear calcifications are present bilaterally. Benign spherical calcifications are present. No significant interval changes are evident. No suspicious groups of microcalcifications, spiculated or lobular masses, architectural distortion or other secondary signs of malignancy are mammographically apparent. Overall Assessment: Benign, BI-RAD 2 Management: Screening Mammogram of both breasts in 1 year. A negative mammogram report should not preclude additional follow up of suspicious palpable abnormalities. Patient should continue monthly self breast exam. A clinical breast exam by your physician is recommended on an annual basis and results should be correlated with mammographic findings. Electronically signed and approved by: Ted Carrasco D.O. Radiologis
--- NOTE | 2022-12-13 12:44 | BD ---
EXAMINATION TYPE: Axial Bone Density DATE OF EXAM: 12/12/2022 CLINICAL HISTORY: 82 years old Female. ICD-10 CODE: Z78.0 POST MENOPAUSAL SYMPTOMS Height: 5 ft 3/4 in Weight: 183 FRAX RISK QUESTIONS: Alcohol (3 or more units per day): no Family History (Parent hip fracture): no Glucocorticoids (More than 3mos): no (Ex: prednisone, prednisolone, methylprednisolone, dexamethasone, and hydrocortisone). History of Fracture in Adulthood: no Secondary Osteoporosis: 1. Type 1 Diabetes: type 2 2. Hyperthyroidism: no 3. Menopause before 45: unsure 4. Malnutrition: no 5. Chronic liver disease: no Rheumatoid Arthritis: no Current Tobacco Use: no RISK FACTORS HISTORY OF: Surgery to Spine/Hip(right/left)/Wrist (right/left): becca hip replacement/ When: Family History of Osteoporosis: no Active: yes Diet low in dairy products/other sources of calcium: no Postmenopausal woman: yes Take estrogen and/or progesterone medications: no Lost more than 2 inches in height since high school: yes Frequent falls: no Poor Health: good Hyperparathyroidism: no Adrenal Insufficiency: no MEDICATIONS: Thyroid Medications: yes Which medication: levothyroxine How Lon-5 years Additional History: lisinopril, , levothyroxine, hydrocodone, EXAM MEASUREMENTS: Bone mineral densitometry was performed using the [employer] System. Bone mineral density as measured about the Lumbar spine is: ----- L1-L4(G/cm2): 1.345 T Score Values are as follows: ----- L1: 1.0 ----- L2: 0.6 ----- L3: 1.7 ----- L4: 2.1 ----- L1-L4: 1.4 Z Score Values are as follows: ----- L1: 2.3 ----- L2: 1.9 ----- L3: 3.0 ----- L4: 3.4 ----- L1-L4: 2.7 Bone mineral density has: increased 3.0 % since study of: 2015 Bone mineral density about the L Wrist (g/cm2): 0.612 T Score values are as follows: -----Dist. R+U: -0.9 -----Prox. R+U: -1.5 -----Radius total: -1.0 Z Score values are as follows: -----Dist. R+U: 2.0 -----Prox. R+U: 1.4 -----Radius total: 1.9 no prev forearm done no frax IMPRESSION: Osteopenia of the left wrist remainder of the findings are within the normal range (T Score between - 2.5 and -1). There is slightly increased risk of fracture and the patient may be considered for treatment. Re-Screen 2-5 years. NOTE: T-SCORE=SD OF THE YOUNG ADULT MEAN.
== END | disposition home or self-care (01) ==
LOC: RADBDWWP 15:30
PROVIDERS: ATTEND Internal Medicine
DX: Z12.31 Encounter for screening mammogram for malignant neoplasm of breast (principal); M85.832 Other specified disorders of bone density and structure, left forearm; Z78.0 Asymptomatic menopausal state; Z96.643 Presence of artificial hip joint, bilateral
CPT/HCPCS: 77063; 77067; 77080

== ENCOUNTER → 2023-10-04 | Outpatient (CLI) | payer MEDICARE ==
--- NOTE | 2023-10-04 15:55 | US ---
EXAMINATION TYPE: US kidneys/renal and bladder DATE OF EXAM: 10/04/2023 COMPARISON: NONE CLINICAL INDICATION: Female, 83 years old with history of R10.2 PELVIC AND PERINEAL PAIN,R10.9 FLANK PAIN; Flank pain/ stomach pain per patient. States it comes and goes, for a few months now. 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
--- NOTE | 2023-10-04 16:05 | US ---
EXAMINATION TYPE: US pelvic complete DATE OF EXAM: 10/04/2023 COMPARISON: NONE CLINICAL INDICATION: Female, 83 years old with history of R10.2 PELVIC AND PERINEAL PAIN; Pelvic pain . Patient states she has had a partial hysterectomy. Patient unsure if she has had ovaries removed or not. TECHNIQUE: Transabdominal (TA). Transabdominal sonographic images of the pelvis were acquired. Tra nsvaginal sonographic images were medically necessary to better assess the following anatomy: Date of LMP: Postmenopausal EXAM MEASUREMENTS: Uterus: Surgically absent Endometrial Stripe: Surgically absent Right Ovary: not visualized Left Ovary: not visualized Conference Director notes: Limited visualization due to overlying gas. Patient seemed confused, transvagin al not performed. 1. Uterus: Surgically absent 2. Endometrium: Surgically absent 3. Right Ovary: Obscured by overlying bowel gas 4. Left Ovary: Obscured by overlying bowel gas 5. Bilateral Adnexa: Obscured by overlying bowel gas 6. Posterior cul-de-sac: obscured by gas IMPRESSION: 1. Status post hysterectomy. Unable to visualize either ovary. 2. No pelvic free fluid.
== END | disposition home or self-care (01) ==
LOC: RADUSWWP 14:02
PROVIDERS: ATTEND Internal Medicine
DX: R10.2 Pelvic and perineal pain (principal); Z90.710 Acquired absence of both cervix and uterus
CPT/HCPCS: 76770; 76856

== ENCOUNTER → 2023-12-27 | Outpatient (CLI) | payer MEDICARE ==
--- NOTE | 2023-12-27 14:49 | XR ---
EXAMINATION TYPE: XR chest 2V DATE OF EXAM: 12/27/2023 COMPARISON: 07/10/2021 HISTORY: Cough and chest pain TECHNIQUE: Frontal and lateral views of the chest are obtained. FINDINGS: There is no focal air space opacity, pleural effusion, or pneumothorax seen. The cardiac silhouette size is within normal limits. The osseous structures are intact. IMPRESSION: No acute cardiopulmonary process.
== END | disposition home or self-care (01) ==
LOC: RADXRMAIN 14:17
PROVIDERS: ATTEND Internal Medicine
DX: R05.9 Cough, unspecified (principal); R06.02 Shortness of breath; R07.9 Chest pain, unspecified
CPT/HCPCS: 71046

== ENCOUNTER → 2023-12-30 | Outpatient (CLI) | payer MEDICARE ==
--- NOTE | 2023-12-30 23:32 | MM ---
Reason for Exam: Screening (asymptomatic). Last mammogram was performed 1 year(s) and 1 month(s) ago. Patient History: Menarche at age 12. First Full-Term at age 28. Hysterectomy at age 35. Postmenopausal. Other cancer, age 75. Risk Values: Fina 5 year model risk: 1.7%. NCI Lifetime model risk: 2.0%. Prior Study Comparison: 10/10/2020 Bilateral Screening Mammogram, [facility]. 11/30/2021 Bilateral Screening Mammogram, [facility]. 12/12/2022 Bilateral MG 3D screening mammo w/cad, [facility]. Tissue Density: There are scattered areas of fibroglandular density. Findings: Analyzed By CAD. The pattern is symmetrical. Multiple benign spherical and linear calcifications are present bilaterally. Findings are stable from comparison. No suspicious groups of microcalcifications, spiculated or lobular masses, architectural distortion or other secondary signs of malignancy are mammographically apparent. Overall Assessment: Benign, BI-RAD 2 Management: Screening Mammogram of both breasts in 1 year. A negative mammogram report should not preclude additional follow up of suspicious palpable abnormalities. Patient should continue monthly self breast exam. A clinical breast exam by your physician is recommended on an annual basis and results should be correlated with mammographic findings. Electronically signed and approved by: Ted Carrasco D.O. Radiologis
== END | disposition home or self-care (01) ==
LOC: RADMAMWWP 14:52
PROVIDERS: ATTEND Internal Medicine
DX: Z12.31 Encounter for screening mammogram for malignant neoplasm of breast (principal); Z78.0 Asymptomatic menopausal state
CPT/HCPCS: 77063; 77067

== ENCOUNTER → 2024-06-01 | Outpatient (CLI) | payer MEDICARE ==
--- NOTE | 2024-06-04 12:33 | US ---
EXAMINATION TYPE: US renals and bladder DATE OF EXAM: 06/01/2024 COMPARISON: CLINICAL INDICATION: Female, 83 years old with history of R10.9 ABD PAIN R10.2 PELVIS PAIN; Flank di [place]. EXAM MEASUREMENTS: Right Kidney: 9.8 x 3.5 x 4.5 cm Left Kidney: 9.4 x 3.7 x 5.0 cm Right Kidney: No hydronephrosis or masses seen Left Kidney: No hydronephrosis or masses seen Bladder: Distended, anechoic Bilateral Jets seen IMPRESSION: 1. No acute changes renal ultrasound [facility], , 06/04/2024 12:30 PM
--- NOTE | 2024-06-04 14:44 | US ---
EXAMINATION TYPE: US pelvic complete DATE OF EXAM: 06/01/2024 COMPARISON: NONE CLINICAL INDICATION: Female, 83 years old with history of R10.9 ABD PAIN R10.2 PELVIS PAIN; Patient states having uterus removed and believes she had her ovaries removed also but is uncertain TECHNIQUE: Transabdominal (TA). Transabdominal sonographic images of the pelvis were acquired. Date of LMP: Unknown EXAM MEASUREMENTS: 1. Uterus: Surgically absent 2. Endometrium: Surgically absent 3. Right Ovary: Obscured by overlying bowel gas 4. Left Ovary: Obscured by overlying bowel gas 5. Bilateral Adnexa: no free fluid or masses seen 6. Posterior cul-de-sac: no free fluid Urinary bladder is sonolucent. Posterior wall is normal. IMPRESSION: Normal post hysterectomy pelvic ultrasound [facility], , 06/04/2024 2:42 PM
== END | disposition home or self-care (01) ==
LOC: RADUSWWP 14:30
PROVIDERS: ATTEND Internal Medicine
DX: R10.2 Pelvic and perineal pain (principal); Z90.710 Acquired absence of both cervix and uterus
CPT/HCPCS: 76770; 76856

== ENCOUNTER → 2025-02-05 | Outpatient (CLI) | payer MEDICARE ==
--- NOTE | 2025-02-05 12:50 | MM ---
Reason for Exam: Screening (asymptomatic). Last mammogram was performed 1 year(s) and 1 month(s) ago. Patient History: Menarche at age 12. First Full-Term at age 28. Hysterectomy at age 35. Postmenopausal. Other cancer, age 75. Risk Values: Fina 5 year model risk: 1.6%. NCI Lifetime model risk: 1.7%. Prior Study Comparison: 11/30/2021 Bilateral Screening Mammogram, [facility]. 12/12/2022 Bilateral MG 3D screening mammo w/cad, [facility]. 12/30/2023 Bilateral MG 3D screening mammo w/cad, [facility]. Tissue Density: The breasts are almost entirely fatty. Findings: Analyzed By CAD. Right breast: There is no suspicious group of microcalcifications or new suspicious mass. Benign-appearing calcifications right breast. Left breast: There is no suspicious group of microcalcifications or new suspicious mass. Benign-appearing calcifications left breast. Overall Assessment: Benign, BI-RAD 2 Management: Screening Mammogram of both breasts in [address] [facility] will attempt to contact patient to return for supplemental views and ultrasound if indicated. Patient should continue monthly self-breast exams. A clinical breast exam by your physician is recommended on an annual basis. This exam should not preclude additional follow-up of suspicious palpable abnormalities. Note on Fina scores and lifetime risk: 1. A Fina score greater than 3% is considered moderate risk. If this is the case, consider specialist referral to assess eligibility for a risk reducing agent. 2. If overall lifetime risk for the development of breast cancer is 20% or higher, the patient may qualify for future screening with alternating mammogram and breast MRI. [facility], , 02/05/2025 12:43 PM. Electronically signed and approved by: Tk Williamson DO
== END | disposition home or self-care (01) ==
LOC: RADMAMWWP 11:44
PROVIDERS: ATTEND Internal Medicine
DX: Z12.31 Encounter for screening mammogram for malignant neoplasm of breast (principal); R92.313 Mammographic fatty tissue density, bilateral breasts; R92.1 Mammographic calcification found on diagnostic imaging of breast; Z78.0 Asymptomatic menopausal state
CPT/HCPCS: 77063; 77067